=== PATIENT | male | born 1980 | race Caucasian/White ===

== ENCOUNTER 2020-04-12 16:50 | Emergency (ER) | payer MEDICAID ==
[~2020-04-12] VITALS: Ht 172.7 cm; Wt 86.1 kg
[2020-04-12 17:09] VITALS: BP 101/65
[2020-04-12] MEDS ORDERED: DICYCLOMINE 10 MG/5 ML ORAL SYR PO STA (17:14)
[2020-04-12] MEDS ORDERED: VISCOUS LIDOCAINE 2% 15 ML UDC PO STA (17:14)
[2020-04-12] MEDS ORDERED: MAGNESIUM/ALUMINUM HYDROXIDE/SIMETHICONE 30ML UDC PO STA (17:14)
[2020-04-12] MEDS ORDERED: MAGNESIUM CITRATE 300ML SOLUTION PO ONE (18:15)
== END 2020-04-12 18:54 | disposition home or self-care (01) ==
LOC: ER 16:50
DX: R05 Cough (principal); K59.00 Constipation, unspecified
CPT/HCPCS: 71045; 99284